=== PATIENT | male | born 1970 | race Caucasian/White ===

== ENCOUNTER 2018-04-14 09:53 | Observation (INO) | payer BC ==
[~2018-04-14 09:53] MED LIST: CEFAZOLIN 2 GM/50 ML (PMX) 50 ML IVPB
[2018-04-14] MEDS: LACTATED RINGER'S 1,000 ML IV* (11:33)
[2018-04-14] MEDS ORDERED: PROPOFOL 20 ML (12:18)
[2018-04-14] MEDS ORDERED: MIDAZOLAM 1 MG/ML 2 ML INJ (12:18)
[2018-04-14] MEDS ORDERED: ROCURONIUM 50 MG INJ (12:18)
[2018-04-14] MEDS ORDERED: CEFAZOLIN 1 GM INJ (12:18)
[2018-04-14] MEDS ORDERED: GLYCOPYRROLATE 0.4 MG INJ (12:18)
[2018-04-14] MEDS ORDERED: NEOSTIGMINE 3 MG/3 ML SYRINGE (12:18)
[2018-04-14] MEDS: BUPIVACAINE 0.25%/EPI (SDV) 30 ML INJ (12:19)
[2018-04-14] MEDS ORDERED: ONDANSETRON 4 MG INJ (12:19)
[2018-04-14] MEDS ORDERED: DEXAMETHASONE 4 MG/ML 1 ML INJ (12:19)
[2018-04-14] MEDS ORDERED: GELATIN SIZE 100 SPONGE (12:19)
[2018-04-14] MEDS: THROMBIN 5000 UNIT VIAL (12:19)
[2018-04-14] MEDS: CA CHLORIDE 10% 10 ML SYRINGE (12:19)
[2018-04-14] MEDS: SURGIFOAM POWDER 1 GM KIT (12:19)
[2018-04-14] MEDS: POLYMYXIN/BACITRACIN 1L IRRIG (12:20)
[2018-04-14] MEDS: HEPARIN 1000 UNITS/ML 10 ML INJ (12:20)
[2018-04-14] MEDS ORDERED: ALBUTEROL 0.083% (NEB) 2.5 MG/3 ML AMP HHN (12:30)
[2018-04-14] MEDS ORDERED: IPRATROPIUM (NEB) 0.5 MG/2.5 ML AMP HHN (12:30)
[2018-04-14] MEDS ORDERED: HYDROmorphONE 0.5 MG/0.5 ML SYG IV (12:30)
[2018-04-14] MEDS ORDERED: BISACODYL 10 MG SUPP PR (12:30)
[2018-04-14] MEDS ORDERED: MIDAZOLAM 1 MG/ML 2 ML INJ IV (12:30)
[2018-04-14] MEDS ORDERED: NALOXONE (0.4 MG/ML) INJ IV (12:30)
[2018-04-14] MEDS ORDERED: FENTAnyl 50 MCG/ML VIAL IV ×2 (12:30)
[2018-04-14] MEDS ORDERED: DIPHENHYDRAMINE 50 MG INJ IV ×2 (12:30)
[2018-04-14] MEDS ORDERED: MEPERIDINE 25 MG INJ IV (12:30)
[2018-04-14] MEDS ORDERED: CEPASTAT LOZENGE MT (12:30)
[2018-04-14] MEDS ORDERED: HYDROmorphONE 1 MG/5 ML IV SYRINGE IV (12:30)
[2018-04-14] MEDS: CEFAZOLIN 1 GM/50 ML (PMX) 50 ML IVPB ×2 (12:30→20:39)
[2018-04-14] MEDS ORDERED: OXYCODONE/ACETAMINOPHEN (5/325) TAB PO ×2 (12:30)
[2018-04-14] MEDS ORDERED: ACETAMINOPHEN 325 MG TAB PO (12:30)
[2018-04-14] MEDS ORDERED: EPHEDrine SULFATE 50 MG/5 ML SYG IV (12:30)
[2018-04-14] MEDS ORDERED: CYCLOBENZAPRINE 10 MG TAB PO (12:30)
[2018-04-14] MEDS ORDERED: hydrALAzine 20 MG INJ IV (12:30)
[2018-04-14] MEDS ORDERED: ONDANSETRON 4 MG INJ IV ×2 (12:30)
[2018-04-14] MEDS ORDERED: LABETALOL HCL 20MG INJ IV (12:30)
[2018-04-14] MEDS ORDERED: TRIMETHOBENZAMIDE 100 MG/ML VIAL IM (12:30)
[2018-04-14] MEDS ORDERED: DIPHENHYDRAMINE 25 MG CAP PO (12:30)
[2018-04-14] MEDS ORDERED: LABETALOL HCL 20MG INJ (14:15)
[2018-04-14] MEDS ORDERED: SUGAMMADEX SODIUM 200 MG/2 ML VIAL IV (14:34)
[2018-04-14] MEDS: HYDROmorphONE 1 MG/5 ML IV SYRINGE IV ×4 (15:17→15:38)
[2018-04-14] MEDS: FENTAnyl 50 MCG/ML VIAL IV ×2 (15:49→15:59)
[2018-04-14] MEDS: HYDROmorphONE 0.2 MG/ML PCA IV (16:14)
[2018-04-14] MEDS: D5W-0.45 NACL + KCL 20 MEQ 1,000 ML IV ×2 (17:11→21:11)
[2018-04-14] MEDS: DOCUSATE SODIUM 100 MG CAP PO (20:39)
[2018-04-15] MEDS: HYDROmorphONE 0.2 MG/ML PCA IV (01:46)
[2018-04-15] MEDS: PANTOPRAZOLE (EC) 40 MG TAB PO (05:15)
[2018-04-15] MEDS: CEFAZOLIN 1 GM/50 ML (PMX) 50 ML IVPB (05:15)
[2018-04-15] MEDS: LEVOTHYROXINE 175 MCG TAB PO (05:15)
[2018-04-15 05:49] LABS: ADD MAN DIFF? NO
[2018-04-15 05:56] LABS: WHITE BLOOD COUNT 19.4 10^3/ul (4.8-10.8)
[2018-04-15 05:56] LABS: BASOPHILS % 0.2 % (0.0-2.0); HEMATOCRIT 41.4 % (42.0-52.0); LYMPHOCYTES # 1.5 10^3/ul (0.8-2.9); LYMPHOCYTES % 7.9 % (15.0-51.0); MEAN CORPUSCULAR HEMOGLOBIN 31.9 pg (29.0-33.0); MEAN CORPUSCULAR HGB CONC 33.8 g/dl (32.0-37.0); MEAN CORPUSCULAR VOLUME 94.3 fl (82.0-101.0); MEAN PLATELET VOLUME 9.7 fl (7.4-10.4); MONOCYTE # 1.1 10^3/ul (0.3-0.9); MONOCYTES % 5.7 % (0.0-11.0); NEUTROPHIL # 16.6 10^3/ul (1.6-7.5); NEUTROPHILS % 85.6 % (39.0-77.0); PLATELET COUNT 229 10^3/UL (140-415); RED BLOOD COUNT 4.39 10^6/ul (4.70-6.10); RED CELL DISTRIBUTION WIDTH 12.7 % (11.5-14.5)
[2018-04-15 06:46] LABS: ANION GAP 15 (8-16); BLOOD UREA NITROGEN 13 mg/dl (7-20); CALCIUM 9.1 mg/dl (8.4-10.2); CARBON DIOXIDE 23 mmol/L (21-31); CHLORIDE 105 mmol/L (97-110); CREATININE 0.91 mg/dl (0.61-1.24); GLUCOSE 118 mg/dl (70-220); MAGNESIUM 1.6 mg/dl (1.7-2.5); POTASSIUM 4.4 mmol/L (3.5-5.1); SODIUM 139 mmol/L (135-144)
[2018-04-15] MEDS: D5W-0.45 NACL + KCL 20 MEQ 1,000 ML IV (08:06)
[2018-04-15] MEDS: DOCUSATE SODIUM 100 MG CAP PO (09:13)
[2018-04-15] MEDS: HYDROCODONE/APAP (10/325) TAB PO ×2 (09:15→13:33)
[2018-04-15] MEDS ORDERED: HYDROCODONE/APAP (10/325) TAB PO (10:00)
[2018-04-15 11:13] LABS: ADD UMIC YES; UR ASCORBIC ACID NEGATIVE (NEGATIVE); UR BILIRUBIN (Dip) NEGATIVE (NEGATIVE); UR BLOOD (Dip) 1+ mg/dL (NEGATIVE); UR CLARITY CLEAR (CLEAR); UR COLOR YELLOW (YELLOW); UR GLUCOSE (Dip) NEGATIVE (NEGATIVE); UR KETONES (Dip) NEGATIVE (NEGATIVE); UR LEUKOCYTE ESTERASE (Dip) NEGATIVE Leu/ul (NEGATIVE); UR NITRITE (Dip) NEGATIVE (NEGATIVE); UR RBC 0 /HPF (0-5); UR SPECIFIC GRAVITY (Dip) 1.013 (1.003-1.030); UR TOTAL PROTEIN (Dip) NEGATIVE (NEGATIVE); UR UROBILINOGEN (Dip) NEGATIVE (NEGATIVE); UR WBC 0 /HPF (0-5)
[2018-04-15] MEDS: MAGNESIUM SULFATE 3 GM in DEXTROSE 5% 100 ML IVPB (11:35)
== END 2018-04-15 15:40 | disposition home or self-care (01) ==
LOC: REC 09:53 → MS1 16:30
DX: M51.16 Intervertebral disc disorders with radiculopathy, lumbar region (principal); E03.9 Hypothyroidism, unspecified
CPT/HCPCS: 63030; 72020; 80048; 81001; 83735; 85025; 86999; 87040; 87086; 97116; 97161; 97530